=== PATIENT | female | born 2000 | race African-American/Black ===

== ENCOUNTER 2019-05-10 02:27 | Emergency (ER) | payer MEDICAID ==
[~2019-05-10] VITALS: Ht 162.6 cm; Wt 55.0 kg
[2019-05-10] MEDS ORDERED: MANNITOL 12.5G (25%) VIAL 50ML IV ONE (03:15)
[2019-05-10] MEDS ORDERED: DEXAMETHASONE 4MG/ML 1ML VIAL IV SCH (06:00)
[2019-05-10 08:33] VITALS: BP 119/69
== END 2019-05-10 08:38 | disposition home or self-care (01) ==
LOC: ER 02:27
DX: T40.601A Poisoning by unspecified narcotics, accidental (unintentional), initial encounter (principal); R41.82 Altered mental status, unspecified; F15.10 Other stimulant abuse, uncomplicated; F17.210 Nicotine dependence, cigarettes, uncomplicated; Z59.0 Homelessness; Y92.488 Other paved roadways as the place of occurrence of the external cause
CPT/HCPCS: 99283; J2150